=== PATIENT | female | born 1975 | race Caucasian/White ===

== ENCOUNTER 2019-04-19 14:57 | Outpatient (CLI) | payer OTHER, SELFPAY ==
--- NOTE | ~2019-04-19 | XR_ITS ---
EXAMINATION: XR chest 2V DATE: 04/19/2019 15:19 INDICATION: Cough and wheezing. Fever. Shortness of breath. TECHNIQUE: Frontal and lateral views of the chest were obtained. COMPARISON: Chest 2 views 12/27/2008 FINDINGS: The chest demonstrates clear lungs without pneumonia, pleural effusion, or pneumothorax. Th e heart size is normal. IMPRESSION: 1. No acute cardiopulmonary disease. Reviewed, dictated and finalized at location A. ENT RECORDS COORDINATOR
[2019-04-19 15:07] LABS: Basophils Absolute Auto 0.02 K/mm3 (0.00-0.10); Basophils Percent Auto 0.3 % (0.0-1.0); Eosinophils Absolute Auto 0.33 K/mm3 (0.02-0.50); Eosinophils Percent Auto 4.6 % (1.0-6.0); Hematocrit 45.1 % (35.0-49.0); Hemoglobin 15.4 g/dL (12.0-15.0); Immature Granulocyte Absolute 0.02 K/mm3 (0.00-0.00); Immature Granulocyte Percent A 0.3 % (0.0-0.0); Lymphocytes Absolute Auto 2.34 K/mm3 (1.10-4.50); Lymphocytes Percent Auto 32.4 % (18.0-42.0); Mean Corpuscular HGB Conc 34.1 g/dL (32.0-36.0); Mean Corpuscular Hemoglobin 32.4 pg (27.0-31.0); Mean Corpuscular Volume 94.9 fL (78.0-102.0); Mean Platelet Volume 9.2 fl (9.2-11.8); Monocytes Absolute Auto 0.59 K/mm3 (0.10-0.90); Monocytes Percent Auto 8.2 % (2.0-11.0); Neutrophils Absolute Auto 3.9 K/mm3 (1.7-7.2); Neutrophils Percent Auto 54.2 % (50.0-70.0); Platelet Count Result 332 K/mm3 (150-420); Red Blood Count 4.75 M/mm3 (4.20-5.40); Red Cell Distribution Width 13.6 % (11.6-14.4); White Blood Count 7.2 K/mm3 (4.8-10.8)
[2019-04-19 15:22] LABS: Alanine Aminotransferase 21 U/L (14-59); Albumin Level 3.7 g/dL (3.4-5.0); Alkaline Phosphatase 90 U/L (46-116); Aspartate Amino Transferase 17 U/L (15-37); Bilirubin,Total 0.2 mg/dL (0.00-1.00); Blood Urea Nitrogen 14 mg/dL (7-18); Calcium 8.6 mg/dL (8.5-10.1); Carbon Dioxide 30 mmol/L (21-32); Chloride 105 mmol/L (98-108); Estimated Glomerular Filt Rate > 60; Glucose 98 mg/dL (70-99); Osmolality Calculated 292 mOsm/kg (285-295); Sodium 141 mmol/L (136-145); Total Protein 7.3 g/dL (6.4-8.2)
[2019-04-19 15:39] LABS: Influenza Control Valid (Valid)
== END 2019-04-19 14:58 | disposition home or self-care (01) ==
LOC: CHSLAB 14:59
PROVIDERS: PCP Internal Medicine; Visit Provider Internal Medicine
DX: R05 Cough (principal); R06.2 Wheezing; R50.9 Fever, unspecified
CPT/HCPCS: 36415; 71046; 80053; 85025; 87081; 87804; 87880

== ENCOUNTER 2021-03-11 14:23 | Outpatient (CLI) | payer OTHER, SELFPAY ==
--- NOTE | ~2021-03-11 | XR_ITS ---
EXAMINATION: XR chest 2V 03/11/2021 15:17 INDICATION: Chest injury. Covid exposure. PROCEDURE: PA and lateral views of the chest COMPARISON: 04/19/2019 FINDINGS: The lungs are clear. The cardiomediastinal silhouette is within normal limits. There are no pleural effusions. There is no pneumothorax suspected. IMPRESSION: 1: NO ACUTE CARDIOPULMONARY DISEASE. Reviewed, dictated and finalized at location B. [employer] SPANISH TEACHER
[2021-03-11 15:26] LABS: Basophils Absolute Auto 0.03 K/mm3 (0.00-0.10); Basophils Percent Auto 0.4 % (0.0-1.0); Eosinophils Absolute Auto 0.32 K/mm3 (0.02-0.50); Eosinophils Percent Auto 4.6 % (1.0-6.0); Hematocrit 49.2 % (35.0-49.0); Hemoglobin 16.3 g/dL (12.0-15.0); Immature Granulocyte Absolute 0.02 K/mm3 (0.00-0.00); Immature Granulocyte Percent A 0.3 % (0.0-0.0); Lymphocytes Absolute Auto 1.73 K/mm3 (1.10-4.50); Lymphocytes Percent Auto 24.7 % (18.0-42.0); Mean Corpuscular HGB Conc 33.1 g/dL (32.0-36.0); Mean Corpuscular Hemoglobin 32.7 pg (27.0-31.0); Mean Corpuscular Volume 98.6 fL (78.0-102.0); Mean Platelet Volume 9.3 fl (9.2-11.8); Monocytes Absolute Auto 0.47 K/mm3 (0.10-0.90); Monocytes Percent Auto 6.7 % (2.0-11.0); Neutrophils Absolute Auto 4.4 K/mm3 (1.7-7.2); Neutrophils Percent Auto 63.3 % (50.0-70.0); Platelet Count Result 443 K/mm3 (150-420); Red Blood Count 4.99 M/mm3 (4.20-5.40); Red Cell Distribution Width 13.2 % (11.6-14.4)
[2021-03-11 15:38] LABS: Influenza Control Valid (Valid)
[2021-03-11 15:41] LABS: Alanine Aminotransferase 29 U/L (14-59); Albumin Level 3.5 g/dL (3.4-5.0); Alkaline Phosphatase 92 U/L (46-116); Anion Gap 9 mmol/L (8-16); Aspartate Amino Transferase 17 U/L (15-37); Bilirubin,Total 0.3 mg/dL (0.00-1.00); Blood Urea Nitrogen 12 mg/dL (7-18); Calcium 8.5 mg/dL (8.5-10.1); Carbon Dioxide 28 mmol/L (21-32); Chloride 103 mmol/L (98-108); Estimated Glomerular Filt Rate > 60; Glucose 80 mg/dL (70-99); Osmolality Calculated 288 mOsm/kg (285-295); Potassium 3.9 mmol/L (3.5-5.1); Sodium 140 mmol/L (136-145); Total Protein 7.3 g/dL (6.4-8.2)
[2021-03-11 15:46] LABS: SARS-CoV-2 Ag Positive (Negative)
== END 2021-03-11 14:24 | disposition home or self-care (01) ==
LOC: CHSLAB 14:27
PROVIDERS: PCP Internal Medicine; Visit Provider Internal Medicine
DX: S29.9XXA Unspecified injury of thorax, initial encounter (principal); U07.1 COVID-19; R06.00 Dyspnea, unspecified
CPT/HCPCS: 71046; 80053; 85025; 85380; 87426; 87804; C9803

== ENCOUNTER 2021-03-11 20:00 | Emergency (ER) | payer OTHER, SELFPAY ==
--- NOTE | 2021-03-11 21:16 | ED.SOB ---
HPI - SOB/Dyspnea General Chief Complaint: Shortness of Breath/Dyspnea Stated Complaint: physicain referral covid positive Time Seen by Provider: 03/11/21 21:16 Source: patient Mode of arrival: ambulatory Limitations: no limitations History of Present Illness HPI Narrative: 45-year-old woman comes in today complaining of left-sided upper chest pain that is worse with a deep breath and with movement. She states that she fell while carrying some firewood several days ago and the pain is getting worse. She states that she has had some shortness of breath as well. She has a cough, nasal congestion, and some body aches but denies fever, nausea, vomiting, diarrhea, sore throat, hemoptysis, syncope. MD elicited complaint: shortness of breath, cough, pain with inspiration and chest pain Onset (ago): day(s) (4) Timing: constant Severity: severe Exacerbating factors: movement, coughing and inspiration Relieving factors: rest Associated symptoms: chest pain and pain with inspiration Treatment prior to arrival: other (Gabapentin) Related Data Home oxygen amount: none Home Medications Medication Instructions Recorded Confirmed gabapentin 500 mg PO DAILY 03/11/21 03/11/21 Allergies Allergy/AdvReac Type Severity Reaction Status Date / Time No Known Allergies Allergy Verified 03/11/21 21:14 Review of Systems Constitutional: Constitutional: Denies chills, Reports fatigue, Denies fever(s) and Denies weakness ENT: Reports nasal congestion and Denies sore throat Cardiovascular: Cardiovascular: Reports chest pain and Denies radiating jaw, neck or arm pain Respiratory: Respiratory: Reports cough, Reports dyspnea and Denies wheezing Gastrointestinal: Gastrointestinal: Denies diarrhea, Denies nausea and Denies vomiting Genitourinary: Genitourinary: Denies nocturia and Denies dysuria Musculoskeletal: Musculoskeletal: Denies back pain, Denies arthralgias and Denies joint swelling Integumentary/Breasts: Skin/Breast: Denies pruritus, Denies erythema and Denies rash Neurologic: Denies vertigo, Denies dizziness and Denies syncope Allergic/Immunologic: Allergic/Immunologic: Denies lip swelling and Denies throat swelling [facility] Social History Social History (Updated 03/11/21 @ 21:26 by Bennett Whitlock MD) Smoking status: Current every day smoker Alcohol intake: current Substance use type: marijuana Living arrangements: with family Exam Const: General: healthy appearing and alert Orientation/consciousness: patient oriented x3 Limitations: no limitations Other: Mild acute distress HENMT: Mouth: Yes moist mucous membranes Throat: posterior oropharynx normal Eyes: Conjunctivae: conjunctivae normal Pupils: Equal, round and reactive pupils present EOM: EOMs intact bilaterally Chest: Chest palpation & inspection: tenderness (Left upper anterior) Resp: Effort & Inspection: normal respiratory effort and not labored Auscultation: clear to auscultation bilaterally, no rales, no rhonchi and no wheezes Cardio: Rate: regular rate Rhythm: regular rhythm Heart sounds: no murmurs Skin: General skin exam: normal color, no jaundice and no pallor Rashes: no rashes Neuro: General: patient oriented x3, moves all extremities, no focal motor deficits and CN's II-XI intact bilaterally Speech: normal speech Gait exam (Neuro): Normal gait present Extrem: General: normal to inspection and no clubbing, cyanosis or edema Psych: Mental Status: mental status grossly normal Affect: normal affect Attitude: cooperative Thought content: Yes Normal thought content present Course Course Emergency Course: Earlier today the patient hadc a chest x-ray which was read as normal. She also had a negative D-dimer, normal white count, normal electrolytes and normal LFTs. Covid test was positive.. Discharge Plan Discharge Clinical Impression: Acute chest wall pain, COVID-19 Patient Disposition: Home, Self-Care Condition: Stable In
[2021-03-11 21:18] VITALS: BP 106/63; PULSE 88; RESP 18; TEMP 36.2; O2SAT 95
--- NOTE | 2021-03-11 21:29 | PC.NURSE ---
pt states, I am a heavy smoker and drinker and i smoke marijuana pretty much every day. pt states, I smoke about 1.5 packs per day and drink a box of wine every three days.
[2021-03-11] MEDS: HYDROcodone/acetaminophen (*CRX) 5-325 MG TABLET 1 TAB PO (21:38)
[2021-03-11 21:59] VITALS: BP 116/82; PULSE 86; RESP 18; O2SAT 94
--- NOTE | 2021-03-16 20:47 | PC.NURSE ---
late note: medication response/reassessment for norco, pain decreased to 3 out of 10 at time of discharge.
--- NOTE | 2021-03-16 20:50 | PC.NURSE ---
late enter: pt informed this staff member of a past tubal ligation surgery and that she is does not know when her last menstrual period was.
== END 2021-03-11 22:01 | disposition home or self-care (01) ==
PROVIDERS: Emergency Provider Emergency Medicine; PCP Internal Medicine
DX: R07.89 Other chest pain (principal); U07.1 COVID-19
CPT/HCPCS: 99283; A9270

== ENCOUNTER 2021-04-03 14:16 | Outpatient (CLI) | payer OTHER, SELFPAY ==
--- NOTE | ~2021-04-03 | XR_ITS ---
EXAMINATION: XR chest 2V DATE: 04/03/2021 14:41 INDICATION: Cough and COPD TECHNIQUE: PA and lateral views of the chest are obtained. COMPARISON: 03/11/2021 FINDINGS: The lungs are free of acute opacities. There is no pleural effusion or pneumothorax. The ca rdiomediastinal silhouette is normal. There is mild thoracic spondylosis. IMPRESSION: 1. No acute cardiopulmonary abnormality. Reviewed, dictated and finalized at location A. DATION MANAGER
[2021-04-03 14:31] LABS: Appearance Urine Clear (Clear); Bilirubin Urine Negative (Negative); Color Urine Light Yellow (Yellow); Glucose Urine UA Negative (Negative); Ketones Urine Negative (Negative); Leukocyte Esterase Ur Negative (Negative); Nitrate Urine Negative (Negative); Protein Urine Trace (Negative); Urobilinogen Urine 0.2 mg/dL (0.2-1.0)
[2021-04-03 14:32] LABS: Basophils Absolute Auto 0.02 K/mm3 (0.00-0.10); Basophils Percent Auto 0.2 % (0.0-1.0); Eosinophils Absolute Auto 0.01 K/mm3 (0.02-0.50); Eosinophils Percent Auto 0.1 % (1.0-6.0); Hemoglobin 16.7 g/dL (12.0-15.0); Immature Granulocyte Absolute 0.04 K/mm3 (0.00-0.00); Immature Granulocyte Percent A 0.4 % (0.0-0.0); Immature Platelet Fraction Pct 3.9 % (1.0-7.0); Lymphocytes Absolute Auto 0.83 K/mm3 (1.10-4.50); Lymphocytes Percent Auto 7.6 % (18.0-42.0); Mean Corpuscular HGB Conc 34.1 g/dL (32.0-36.0); Mean Corpuscular Hemoglobin 33.1 pg (27.0-31.0); Mean Corpuscular Volume 97.2 fL (78.0-102.0); Mean Platelet Volume 9.3 fl (9.2-11.8); Monocytes Absolute Auto 0.15 K/mm3 (0.10-0.90); Monocytes Percent Auto 1.4 % (2.0-11.0); Neutrophils Absolute Auto 9.8 K/mm3 (1.7-7.2); Neutrophils Percent Auto 90.3 % (50.0-70.0); Platelet Count Result 548 K/mm3 (150-420); Red Blood Count 5.04 M/mm3 (4.20-5.40); Red Cell Distribution Width 13.7 % (11.6-14.4); White Blood Count 10.9 K/mm3 (4.8-10.8)
[2021-04-03 14:36] LABS: Add Urine Microscopic? YES; Blood Urine Trace-Intact (Negative)
[2021-04-03 14:38] LABS: Bacteria Urine Trace /hpf; RBC Urine None seen /hpf (0-2); Squamous Epithelial Cell Urine Few /hpf (Few); WBC Urine None seen /hpf (0-3)
[2021-04-03 14:57] LABS: Alanine Aminotransferase 33 U/L (14-59); Albumin Level 3.6 g/dL (3.4-5.0); Alkaline Phosphatase 96 U/L (46-116); Anion Gap 11 mmol/L (8-16); Aspartate Amino Transferase 16 U/L (15-37); Bilirubin,Total 0.3 mg/dL (0.00-1.00); Blood Urea Nitrogen 12 mg/dL (7-18); Carbon Dioxide 27 mmol/L (21-32); Chloride 100 mmol/L (98-108); Estimated Glomerular Filt Rate > 60; Glucose 112 mg/dL (70-99); Osmolality Calculated 286 mOsm/kg (285-295); Potassium 4.6 mmol/L (3.5-5.1); Sodium 138 mmol/L (136-145); Total Protein 7.1 g/dL (6.4-8.2)
== END 2021-04-03 14:17 | disposition home or self-care (01) ==
LOC: CHSLAB 14:18
PROVIDERS: PCP Internal Medicine; Visit Provider Internal Medicine
DX: R05.9 Cough, unspecified (principal); R30.0 Dysuria; J44.1 Chronic obstructive pulmonary disease with (acute) exacerbation
CPT/HCPCS: 36415; 71046; 80053; 81001; 85025; 85055

== ENCOUNTER 2022-06-04 10:56 | Emergency (ER) | payer OTHER, SELFPAY ==
--- NOTE | ~2022-06-04 | XR_ITS ---
XR foot LT min 3V 06/04/2022 11:29 Indication: Left foot pain. Infection of the fourth and fifth toes. Procedure: 4 views left foot Comparison: 08/08/2018 Findings: There is anatomic alignment. No findings to suggest osteomyelitis. No fracture or traumatic malalignment. No foreign bodies. Small degenerative calcaneal enthesophytes. Impression: 1: No significant bone or joint abnormality. If there is continued clinical concern for osteomyelitis , further evaluation with MRI with contrast recommended. Reviewed, dictated and finalized at location A. Impression: 1: No significant bone or joint abnormality. If there is continued clinical con cern for osteomyelitis, further evaluation with MRI with contrast recommended.
[2022-06-04 10:56] VITALS: BP 139/91; PULSE 106; RESP 17; TEMP 36.4; O2SAT 96
[2022-06-04 11:08] VITALS: BP 139/91; PULSE 106; RESP 17; TEMP 36.4; O2SAT 96
--- NOTE | 2022-06-04 11:17 | ED.GENADULT ---
HPI - General Adult General Chief complaint: Wound/Laceration Stated complaint: left fifth toe pain and discoloration Time Seen by Provider: 06/04/22 11:09 History of Present Illness HPI narrative: the patient is a 46-year-old woman with no significant past medical history. For the last month, the patient is noted redness and tenderness at the tip of the left 5th toe. This was spontaneous. No history of trauma to left foot. She has applied topical antibiotic ointment to this. Now, there is some redness of the tip of the left 4th toe for the last 3 days. No fevers. No history of diabetes or peripheral neuropathy. Has sensation in the feet. Does smoke cigarettes.No previous similar history. No history of boils or abscesses elsewhere. Also complains of dysuria, urinary urgency and frequency with occasional hematuria for the last several days. No abdominal pain or back pain. History of kidney stones in the distant past. Varicose veins. Related Data Allergies Allergy/AdvReac Type Severity Reaction Status Date / Time No Known Allergies Allergy Verified 06/04/22 11:06 Review of Systems Review of Systems: All systems reviewed & are unremarkable except as noted in HPI and below Constitutional: Constitutional: Reports as per HPI, Reports no additional constitutional complaints, Denies chills, Denies excessive sweating, Denies fatigue, Denies fever(s), Denies headache(s) and Denies weakness Eyes: Eyes: Reports as per HPI, Reports no additional eye complaints, Denies change in vision and Denies photophobia ENT: Reports system reviewed and no additional complaints, except as documented, Reports as per HPI, Denies dysphagia, Denies vertigo, Denies dizziness, Denies headache(s), Denies lip swelling, Denies nasal congestion, Denies sore throat, Denies throat swelling and Denies tongue swelling Cardiovascular: Cardiovascular: Reports as per HPI, Reports no additional cardiovascular complaints, Denies chest pain, Denies syncope, Denies rapid heart rate and Denies dyspnea Respiratory: Respiratory: Reports as per HPI, Reports no additional respiratory complaints, Denies chest congestion, Denies cough, Denies dyspnea and Denies wheezing Gastrointestinal: Gastrointestinal: Reports as per HPI, Reports no additional gastrointestinal complaints, Denies abdominal pain, Denies constipation, Denies dysphagia, Denies diarrhea, Denies nausea and Denies vomiting Genitourinary: Genitourinary: Reports as per HPI, Reports hematuria, Denies urinary frequency, Reports nocturia, Reports dysuria, Denies urinary incontinence and Reports urinary urgency Musculoskeletal: Musculoskeletal: Reports no additional musculoskeletal complaints, Denies back pain, Denies myalgias, Reports arthralgias ( left 4th & 5th toes), Reports joint swelling ( left 5th toe) and Denies numbness Integumentary/Breasts: Skin/Breast: Reports system reviewed and no additional complaints, except as docu, Denies pruritus, Reports erythema ( Left 4th 5th toes), Denies rash and Reports skin ulcer ( left 5th toe) Neurologic: Reports system reviewed and no additional complaints, except as documented, Reports as per HPI, Denies confusion, Denies vertigo, Denies dizziness, Denies syncope, Denies headache(s), Denies focal weakness, Denies numbness and Denies weakness Psychiatric: Psychiatric: Reports as per HPI, Denies anxiety, Denies confusion, Denies depression, Denies homicidal ideation and Denies suicidal ideation Endocrine: Endocrine: Reports no additional endocrine complaints, Denies excessive sweating, Denies fatigue, Denies polydipsia and Denies polyuria Hematologic/Lymphatic: Hematologic/Lymphatic: Reports no additional hematologic/lymphatic complaints, Denies easy bleeding and Denies easy bruising Allergic/Immunologic: Allergic/Immunologic: Reports no additional allergic/immunologic complaints, Denies lip swelling, Denies throat swelling, Denies tongue swelling and Denies wheezing PMFSH So
[2022-06-04 11:34] LABS: Basophils Absolute Auto 0.04 K/mm3 (0.00-0.10); Basophils Percent Auto 0.5 % (0.0-1.0); Eosinophils Absolute Auto 0.24 K/mm3 (0.02-0.50); Hematocrit 51.9 % (35.0-49.0); Hemoglobin 17.3 g/dL (12.0-15.0); Immature Granulocyte Absolute 0.05 K/mm3 (0.00-0.00); Immature Granulocyte Percent A 0.6 % (0.0-0.0); Lymphocytes Percent Auto 20.2 % (18.0-42.0); Mean Corpuscular HGB Conc 33.3 g/dL (32.0-36.0); Mean Corpuscular Volume 96.1 fL (78.0-102.0); Mean Platelet Volume 9.7 fl (9.2-11.8); Monocytes Percent Auto 7.6 % (2.0-11.0); Neutrophils Absolute Auto 5.4 K/mm3 (1.7-7.2); Neutrophils Percent Auto 68.1 % (50.0-70.0); Platelet Count Result 474 K/mm3 (150-420); Red Cell Distribution Width 14.4 % (11.6-14.4); White Blood Count 7.9 K/mm3 (4.8-10.8)
[2022-06-04] MEDS: ceFAZolin 2 GM/NS 50 ML 2 GM/50 ML BAG IVPB (11:42)
[2022-06-04] MEDS: SODIUM CHLORIDE 0.9% IV 1,000 ML 999 ML IV CONT (11:43)
[2022-06-04] MEDS: ACETAMINOPHEN 500 MG TABLET 1000 MG PO (11:44)
[2022-06-04 11:51] LABS: Alanine Aminotransferase 33 U/L (14-59); Albumin Level 3.6 g/dL (3.4-5.0); Alkaline Phosphatase 106 U/L (46-116); Anion Gap 9 mmol/L (8-16); Aspartate Amino Transferase 26 U/L (15-37); Bilirubin,Total 0.3 mg/dL (0.00-1.00); Blood Urea Nitrogen 8 mg/dL (7-18); CRP < 0.5 mg/dL (0.0-0.9); Carbon Dioxide 30 mmol/L (21-32); Chloride 102 mmol/L (98-108); Estimated CRCL calculation 108 ml/min; Estimated Glomerular Filt Rate > 60; Glucose 93 mg/dL (70-99); Osmolality Calculated 290 mOsm/kg (285-295); Sodium 141 mmol/L (136-145); Total Protein 7.6 g/dL (6.4-8.2)
[2022-06-04 12:10] VITALS: BP 116/78; PULSE 81; RESP 17; O2SAT 95
[2022-06-04 12:17] LABS: Appearance Urine Clear (Clear); Bilirubin Urine Negative (Negative); Blood Urine Negative (Negative); Color Urine Light Yellow (Yellow); Glucose Urine UA Negative (Negative); Ketones Urine Negative (Negative); Leukocyte Esterase Ur Negative LEU/UL (Negative); Nitrate Urine Negative (Negative); Protein Urine 1+ (Negative); Urobilinogen Urine 0.2 mg/dL (0.2-1.0)
[2022-06-04 12:19] LABS: Pregnancy On Board Control Positive; Urine Pregnancy Test Negative
[2022-06-04 12:22] LABS: Add Urine Microscopic? YES; Bacteria Urine None seen /hpf; RBC Urine 0-2 /hpf (0-2); Squamous Epithelial Cell Urine Few /hpf (Few); WBC Urine 0-3 /hpf (0-3)
[2022-06-04] MEDS: IBUPROFEN 400 MG TABLET 800 MG PO (12:48)
[2022-06-04 12:55] VITALS: BP 137/95; PULSE 80; RESP 17; TEMP 36.8; O2SAT 95
[2022-06-04 13:11] LABS: Erythrocyte Sedimentation Rate 8 mm/hr (0-15)
== END 2022-06-04 12:55 | disposition home or self-care (01) ==
PROVIDERS: Emergency Provider Emergency Medicine; PCP Internal Medicine
DX: L03.032 Cellulitis of left toe (principal); F17.200 Nicotine dependence, unspecified, uncomplicated
CPT/HCPCS: 36415; 73630; 80053; 81001; 81025; 83605; 85025; 85652; 86140; 96361; 96365; 99284; A9270; J0690; J7030

== ENCOUNTER 2022-10-16 11:38 | Emergency (ER) | payer OTHER, SELFPAY ==
[2022-10-16 11:40] VITALS: BP 148/99; PULSE 109; RESP 20; TEMP 36.8; O2SAT 96
--- NOTE | 2022-10-16 11:40 | ED.ABDPAIN ---
HPI - Abdominal Pain General Chief Complaint: Nausea/Vomiting/Diarrhea Stated Complaint: abdominal pain Time Seen by Provider: 10/16/22 11:40 Source: patient Mode of arrival: ambulatory Limitations: no limitations History of Present Illness HPI narrative: 47-year-old female, smoker, marijuana user presents to the ER with a one-week history of -- diffuse abdominal spasms/pain -- diarrhea- multiple episodes no recent antibiotics. MD elicited complaint: abdominal pain Pertinent past history: gastritis Onset (ago): day(s) ( started 7 days ago) Pain Consistency: constant Location: diffuse Severity: moderate Quality: aching Radiation: none Migration to: no migration Exacerbating factors: nothing Relieving factors: nothing Associated symptoms: denies other symptoms Treatments prior to arrival: NSAIDs Related Data Home Medications Medication Instructions Recorded Confirmed pantoprazole 40 mg tablet,delayed 40 mg PO QAM 10/16/22 10/16/22 release (Protonix) Allergies Allergy/AdvReac Type Severity Reaction Status Date / Time No Known Allergies Allergy Verified 10/16/22 12:02 Review of Systems Review of Systems: All systems reviewed & are unremarkable except as noted in HPI and below Constitutional: Constitutional: Reports as per HPI and Reports no additional constitutional complaints Eyes: Eyes: Reports as per HPI and Reports no additional eye complaints ENT: Reports system reviewed and no additional complaints, except as documented and Reports as per HPI Cardiovascular: Cardiovascular: Reports as per HPI and Reports no additional cardiovascular complaints Respiratory: Respiratory: Reports as per HPI and Reports no additional respiratory complaints Gastrointestinal: Gastrointestinal: Reports as per HPI, Reports no additional gastrointestinal complaints, Reports abdominal pain and Reports diarrhea Genitourinary: Genitourinary: Reports no additional female genitourinary complaints and Reports as per HPI Musculoskeletal: Musculoskeletal: Reports no additional musculoskeletal complaints and Reports as per HPI Integumentary/Breasts: Skin/Breast: Reports system reviewed and no additional complaints, except as docu and Reports as per HPI Comments: left foot 1st and 2nd toes are cyanotic Neurologic: Reports system reviewed and no additional complaints, except as documented and Reports as per HPI Psychiatric: Psychiatric: Reports no additional psychiatric complaints and Reports as per HPI Endocrine: Endocrine: Reports no additional endocrine complaints and Reports as per HPI Hematologic/Lymphatic: Hematologic/Lymphatic: Reports no additional hematologic/lymphatic complaints and Reports as per HPI Allergic/Immunologic: Allergic/Immunologic: Reports no additional allergic/immunologic complaints and Reports as per HPI [facility] Social History Social History Smoking status: Current every day smoker Alcohol intake: current Substance use type: marijuana Living arrangements: with family Exam Const: General: no acute distress Nutritional Appearance: obese Orientation/consciousness: patient oriented x3 Limitations: no limitations HENMT: Head: normal to inspection Ears: external ears normal Face/Nose/Sinus: Normal external nose present Face and sinus: normal facial exam Mouth: Yes Normal oral and palatal mucosa present Throat: posterior oropharynx normal Eyes: Conjunctivae: conjunctivae normal Pupils: Equal, round and reactive pupils present EOM: EOMs intact bilaterally Direct Ophthalmoscopy: no photophobia Neck: Neck: normal visual inspection, no lymphadenopathy and no meningeal signs Chest: Chest palpation & inspection: normal inspection of the chest Resp: Effort & Inspection: normal respiratory effort Auscultation: clear to auscultation bilaterally Cardio: Rate: regular rate Rhythm: regular rhythm GI: GI Palp: Yes Soft to palpa
[2022-10-16 12:08] LABS: Appearance Urine Slightly Cloudy (Clear); Bilirubin Urine 1+ (Negative); Blood Urine Trace-Intact (Negative); Color Urine Yellow (Yellow); Glucose Urine UA Negative (Negative); Ketones Urine Trace (Negative); Leukocyte Esterase Ur 1+ LEU/UL (Negative); Nitrate Urine Positive (Negative); Protein Urine 2+ (Negative); Specific Grav Ur >= 1.030 (1.010-1.020)
[2022-10-16 12:21] LABS: Eosinophils Absolute Auto 0.46 K/mm3 (0.02-0.50); Eosinophils Percent Auto 4.4 % (1.0-6.0); Hematocrit 62.6 % (35.0-49.0); Hemoglobin 20.8 g/dL (12.0-15.0); Immature Granulocyte Absolute 0.05 K/mm3 (0.00-0.00); Immature Granulocyte Percent A 0.5 % (0.0-0.0); Immature Platelet Fraction Pct 5.3 % (1.0-7.0); Lymphocytes Absolute Auto 1.19 K/mm3 (1.10-4.50); Lymphocytes Percent Auto 11.5 % (18.0-42.0); Mean Corpuscular HGB Conc 33.2 g/dL (32.0-36.0); Mean Corpuscular Hemoglobin 30.2 pg (27.0-31.0); Mean Platelet Volume 9.9 fl (9.2-11.8); Monocytes Absolute Auto 0.75 K/mm3 (0.10-0.90); Monocytes Percent Auto 7.3 % (2.0-11.0); Neutrophils Absolute Auto 7.8 K/mm3 (1.7-7.2); Neutrophils Percent Auto 75.3 % (50.0-70.0); Platelet Count Result 551 K/mm3 (150-420); Red Blood Count 6.88 M/mm3 (4.20-5.40); Red Cell Distribution Width 15.2 % (11.6-14.4); White Blood Count 10.3 K/mm3 (4.8-10.8)
[2022-10-16 12:23] LABS: Add Urine Microscopic? YES; RBC Urine None seen /hpf (0-2)
[2022-10-16 12:24] LABS: Bacteria Urine 1+ /hpf; Mucus Urine Moderate /lpf; Squamous Epithelial Cell Urine Moderate /hpf (Few)
[2022-10-16 12:32] LABS: INR 1.1; Prothrombin Time 11.9 Seconds (9.50-12.10)
[2022-10-16 12:36] LABS: Lactic Acid Reflex 0.8 mmol/L (0.4-2.0)
[2022-10-16 12:38] LABS: Alanine Aminotransferase 35 U/L (14-59); Albumin Level 3.6 g/dL (3.4-5.0); Alkaline Phosphatase 103 U/L (46-116); Anion Gap 5 mmol/L (8-16); Aspartate Amino Transferase 22 U/L (15-37); Bilirubin,Total 0.5 mg/dL (0.00-1.00); Blood Urea Nitrogen 9 mg/dL (7-18); Calcium 9.1 mg/dL (8.5-10.1); Carbon Dioxide 32 mmol/L (21-32); Chloride 101 mmol/L (98-108); Estimated CRCL calculation 78 ml/min; Estimated Glomerular Filt Rate > 60; Glucose 113 mg/dL (70-99); Osmolality Calculated 285 mOsm/kg (285-295); Potassium 3.8 mmol/L (3.5-5.1); Sodium 138 mmol/L (136-145); Total Protein 7.3 g/dL (6.4-8.2)
[2022-10-16 12:39] LABS: Lipase 17 U/L (16-77); Troponin I < 4.0 ng/L (0.00-60.4)
[2022-10-16] MEDS: LACTATED RINGERS 1,000 ML 999 ML IV CONT (13:11)
[2022-10-16 13:57] VITALS: BP 147/92; PULSE 88; RESP 20; TEMP 36.7; O2SAT 97
--- NOTE | 2022-10-19 12:45 | PC.NURSE ---
PRELIMINARY URINE CULTURE RESULTS: ISOLATE 1: GREATER THAN 100,000 CFU/ML OF ESCHERICHIA COLI. TO AWAIT C&S PER DR WALTER.
--- NOTE | 2022-10-21 13:12 | PC.NURSE ---
FINAL URINE CULTURE RESULT: ISOLATE 1: GREATER THAN 100,000 CGU/ML OF ESCHERICHIA COLI. PER C&S AND DR ZIMMER NO CHANGE IN TREATMENT NEEDED.
== END 2022-10-16 13:58 | disposition home or self-care (01) ==
PROVIDERS: Emergency Provider Internal Medicine Critical Care Medicine; PCP Internal Medicine
DX: E86.0 Dehydration (principal); L03.032 Cellulitis of left toe; R10.84 Generalized abdominal pain; R19.7 Diarrhea, unspecified; F17.200 Nicotine dependence, unspecified, uncomplicated
CPT/HCPCS: 36415; 80053; 81001; 83605; 83690; 84484; 85025; 85055; 85610; 87077; 87086; 87088; 87186; 96360; 99284; J7120

== ENCOUNTER 2022-10-28 14:03 | Outpatient (CLI) | payer OTHER, SELFPAY ==
--- NOTE | ~2022-10-28 | XR_ITS ---
EXAMINATION: XR foot LT min 3V DATE: 10/28/2022 14:28 INDICATION: Left foot pain and swelling TECHNIQUE: Dorsoplantar, lateral, and 2 oblique views of the left foot were obtained. COMPARISON: 06/04/2022 FINDINGS: Bone alignment is normal. There is no fracture. There is mild osteoarthritis at the first t arsometatarsal joint, the first metatarsophalangeal joint, and in multiple interphalangeal joints. Po sterior and plantar calcaneal enthesophytes are noted. IMPRESSION: 1. No acute osseous abnormality. Reviewed, dictated and finalized at location F.
[2022-10-28 14:23] LABS: Basophils Absolute Auto 0.06 K/mm3 (0.00-0.10); Basophils Percent Auto 0.6 % (0.0-1.0); Eosinophils Absolute Auto 0.45 K/mm3 (0.02-0.50); Eosinophils Percent Auto 4.7 % (1.0-6.0); Hematocrit 59.8 % (35.0-49.0); Hemoglobin 19.7 g/dL (12.0-15.0); Immature Granulocyte Absolute 0.04 K/mm3 (0.00-0.00); Immature Granulocyte Percent A 0.4 % (0.0-0.0); Lymphocytes Absolute Auto 1.73 K/mm3 (1.10-4.50); Lymphocytes Percent Auto 17.9 % (18.0-42.0); Mean Corpuscular HGB Conc 32.9 g/dL (32.0-36.0); Mean Corpuscular Hemoglobin 29.8 pg (27.0-31.0); Mean Corpuscular Volume 90.5 fL (78.0-102.0); Mean Platelet Volume 9.7 fl (9.2-11.8); Monocytes Absolute Auto 0.63 K/mm3 (0.10-0.90); Monocytes Percent Auto 6.5 % (2.0-11.0); Neutrophils Absolute Auto 6.7 K/mm3 (1.7-7.2); Neutrophils Percent Auto 69.9 % (50.0-70.0); Platelet Count Result 627 K/mm3 (150-420); Red Blood Count 6.61 M/mm3 (4.20-5.40); Red Cell Distribution Width 15.1 % (11.6-14.4); White Blood Count 9.7 K/mm3 (4.8-10.8)
[2022-10-28 14:37] LABS: D Dimer 0.43 mg/L (0.19-0.50); Partial Thromboplastin Time 33.3 SEC (23.90-30.70); Prothrombin Time 10.8 Seconds (9.50-12.10)
[2022-10-28 14:57] LABS: Alanine Aminotransferase 65 U/L (14-59); Albumin Level 3.8 g/dL (3.4-5.0); Alkaline Phosphatase 110 U/L (46-116); Anion Gap 6 mmol/L (8-16); Aspartate Amino Transferase 39 U/L (15-37); Bilirubin,Total 0.4 mg/dL (0.00-1.00); Blood Urea Nitrogen 8 mg/dL (7-18); Calcium 9.3 mg/dL (8.5-10.1); Carbon Dioxide 31 mmol/L (21-32); Chloride 101 mmol/L (98-108); Cholesterol 188 mg/dL (0-200); Estimated Glomerular Filt Rate > 60; Glucose 99 mg/dL (70-99); HDL Direct 47 mg/dL (40-60); LDL Cholesterol Calculated 95 mg/dL (<130); Osmolality Calculated 284 mOsm/kg (285-295); Potassium 4.6 mmol/L (3.5-5.1); Sodium 138 mmol/L (136-145); Total Protein 7.2 g/dL (6.4-8.2); Triglycerides 228 mg/dL (0-150); Uric Acid 6.2 mg/dL (2.6-6.0)
[2022-11-05 11:34] LABS: Block/Specimen ID Not Given; Exon 14; Gene JAK2; JAK2 V617F Mutation Detected (Not Detected); Mutation Type missense
== END 2022-10-28 14:04 | disposition home or self-care (01) ==
PROVIDERS: PCP Internal Medicine; Visit Provider Nurse Practitioner Family
DX: R22.42 Localized swelling, mass and lump, left lower limb (principal); I10 Essential (primary) hypertension; D45 Polycythemia vera
CPT/HCPCS: 36415; 73630; 80053; 80061; 81270; 84550; 85025; 85055; 85380; 85610; 85730

== ENCOUNTER 2022-11-02 12:24 | Outpatient (CLI) | payer OTHER, SELFPAY ==
--- NOTE | ~2022-11-02 | US_ITS ---
EXAMINATION: US art doppler w press LE BI DATE: 11/02/2022 13:27 INDICATION: Peripheral arterial occlusive disease with left lower limb pain TECHNIQUE: Segmental pressures and plethysmographic and Doppler waveforms of the brachial and lower e xtremity arteries were obtained. COMPARISON: None. FINDINGS: Right and left brachial artery pressures of 139 mm Hg and 134 mm Hg, respectively, are concordant (no rmal difference <= 30 mmHg). The right ankle-brachial index (JANET) is 1.12 (normal >= 0.9-1). The right great toe-brachial index (T BI) is 0.32 (normal >= 0.6-0.8). Arterial waveforms are triphasic at the right popliteal and posterio r tibial arteries and biphasic at the right dorsalis pedis artery, each with brisk systolic upstrokes . Parvus et tardus waveforms with mildly delayed systolic upstrokes at the right great toe. The left JANET is 0.91. The left TBI is unable to be obtained due to inability to obtain a pressure at the left great toe. Arterial waveforms are biphasic at the left popliteal, posterior tibial and dorsa lis pedis arteries, each with brisk systolic upstrokes. Additional parvus and tardus waveforms at the left second, fourth and most prominently at the first toes. Phasic waveforms with normal systolic up strokes at the left third and fifth toes. IMPRESSION: 1. Arterial occlusive disease to bilateral lower limbs with normal right JANET but moderately decreased right TBI and borderline left JANET with a parvus et tardus arterial waveform but no measurable pressu re at the left great toe. Reviewed, dictated and finalized at location A. IMPRESSION: 1. Arterial occlusive disease to bilateral lower limbs with normal right JANET bu t moderately decreased right TBI and borderline left JANET with a parvus et tardu s arterial waveform but no measurable pressure at the left great toe.
--- NOTE | ~2022-11-02 | US_ITS ---
EXAMINATION: US venous doppler [facility] DATE: 11/02/2022 13:27 INDICATION: Left lower limb cyanosis and pain TECHNIQUE: Grayscale ultrasound images without and with compression and Doppler ultrasound images of the left lower extremity veins were obtained. COMPARISON: None. FINDINGS: The visualized portions of left common femoral vein, profunda (deep) femoral vein, femoral vein, popl iteal vein, peroneal veins, posterior tibial veins, gastrocnemius vein and greater saphenous vein out flow are patent. IMPRESSION: 1. No deep venous thrombosis in the left lower limb. Reviewed, dictated and finalized at location A.
[2022-11-02 12:50] LABS: Venous Carboxyhemoglobin 8.4 %THb (0-2.0)
[2022-11-02 13:34] LABS: Ferritin 46 ng/mL (8-252); Iron 150 ug/dL (50-170); Percent Iron Saturation 39 % (12-57)
[2022-11-02 13:47] LABS: Erythrocyte Sedimentation Rate 1 mm/hr (0-15)
[2022-11-06 15:27] LABS: Erythropoietin (EPO) 1.4 mIU/mL (2.6-18.5)
== END 2022-11-02 12:25 | disposition home or self-care (01) ==
LOC: CHSIMG 12:28
PROVIDERS: PCP Internal Medicine; Visit Provider Nurse Practitioner Family
DX: R23.0 Cyanosis (principal); I73.9 Peripheral vascular disease, unspecified; D45 Polycythemia vera
CPT/HCPCS: 36415; 82375; 82668; 82728; 83540; 83550; 85652; 93923; 93971

== ENCOUNTER 2022-11-03 07:28 | Outpatient (CLI) | payer OTHER, SELFPAY ==
--- NOTE | ~2022-11-03 | US_ITS ---
EXAMINATION: US abdomen complete DATE: 11/03/2022 07:58 INDICATION: Elevated liver enzymes TECHNIQUE: Multiple grayscale and Doppler ultrasound images of the abdomen were obtained. COMPARISON: CT, 02/16/2018 FINDINGS: The head and body of the pancreas are normal. The pancreatic tail is obscured by bowel gas. There is a 6.2 x 4.8 cm hypoechoic area posteriorly in the right hepatic lobe. The liver is otherwis e normal with normal echogenicity and echotexture. No surface nodularity. Normal hepatopetal flow in the main portal vein. The gallbladder is normal with no abnormal wall thickening, pericholecystic flu id or stones. The normal common bile duct measures 3 mm. There was no sonographic Dimas sign. The vi sualized portions of the aorta and inferior vena cava are normal. The spleen is normal in appearance and measures 11.1 cm. The right kidney measures 10.7 x 5.7 x 4.5 c m. The left kidney measures 12.4 x 5.2 x 5.8 cm. The kidneys demonstrate normal parenchymal echogenic ity. There is no hydronephrosis. IMPRESSION: 1. Hypoechoic area posteriorly in the right hepatic lobe which could reflect mass or possibly focal f atty sparing. Follow-up MRI without and with contrast is recommended. Reviewed, dictated and finalized at location B. IMPRESSION: 1. Hypoechoic area posteriorly in the right hepatic lobe which could reflect ma ss or possibly focal fatty sparing. Follow-up MRI without and with contrast is recommended.
== END 2022-11-03 07:29 | disposition home or self-care (01) ==
LOC: CHSIMG 07:30
PROVIDERS: PCP Internal Medicine; Visit Provider Nurse Practitioner Family
DX: R74.01 Elevation of levels of liver transaminase levels (principal); R10.9 Unspecified abdominal pain; R93.2 Abnormal findings on diagnostic imaging of liver and biliary tract
CPT/HCPCS: 76700

== ENCOUNTER 2023-08-11 11:28 | Outpatient (CLI) | payer OTHER, SELFPAY ==
--- NOTE | ~2023-08-11 | MM_ITS ---
EXAMINATION: MM screening zach BI w annabelle HISTORY: Screening mammogram TECHNIQUE: Craniocaudal and mediolateral oblique 3-D tomosynthesis images were obtained and synthetic 2-D images were generated. CAD analysis was submitted and interpreted. COMPARISON: 11/19/2013 BREAST PARENCHYMAL COMPOSITION:Not Dense. The breasts are almost entirely fatty FINDINGS: No suspicious mass, calcification, or architectural distortion are identified in either tanya ast to suggest malignancy. There has been no suspicious interval change. IMPRESSION: No mammographic evidence of malignancy. Recommend routine screening mammography in one year. BI-RADS Category 1: Negative Reviewed, dictated and finalized at location .
== END 2023-08-11 11:29 | disposition home or self-care (01) ==
LOC: CHSIMG 11:33
PROVIDERS: PCP Internal Medicine; Visit Provider Internal Medicine
DX: Z12.31 Encounter for screening mammogram for malignant neoplasm of breast (principal)
CPT/HCPCS: 77063; 77067

== ENCOUNTER 2023-09-20 14:18 | Outpatient (CLI) | payer OTHER, SELFPAY ==
--- NOTE | ~2023-09-20 | US_ITS ---
EXAMINATION: US venous doppler LE RT DATE: 09/20/2023 14:51 INDICATION: Right lower limb pain and swelling. TECHNIQUE: Grayscale ultrasound images without and with compression and Doppler ultrasound images of the right lower extremity veins were obtained. COMPARISON: None. FINDINGS: The visualized portions of right common femoral vein, profunda (deep) femoral vein, femoral vein, pop liteal vein, peroneal veins, posterior tibial veins, and greater saphenous vein outflow are patent. IMPRESSION: 1. No deep venous thrombosis. Reviewed, dictated and finalized at location A.
[2023-09-20 14:37] LABS: Hematocrit 40.3 % (35.0-49.0); Hemoglobin 14.2 g/dL (12.0-15.0); Mean Corpuscular HGB Conc 35.2 g/dL (32-36); Mean Corpuscular Hemoglobin 38.2 pg (27.0-31.0); Mean Corpuscular Volume 108.3 fL (78.0-102.0); Mean Platelet Volume 9.2 fl (9.2-11.8); Platelet Count Result 259 K/mm3 (150-420); Red Blood Count 3.72 M/mm3 (4.20-5.40); Red Cell Distribution Width 15.2 % (11.6-14.4)
[2023-09-20 15:02] LABS: INR 0.9; Partial Thromboplastin Time 29.4 Sec (23.9-30.70); Prothrombin Time 9.8 Seconds (9.50-12.1)
[2023-09-20 19:30] LABS: Alanine Aminotransferase 27 U/L (14-59); Albumin Level 3.9 g/dL (3.4-5.0); Alkaline Phosphatase 109 U/L (46-116); Anion Gap 12 mmol/L (4-12); Aspartate Amino Transferase 20 U/L (15-37); Bilirubin,Total 0.3 mg/dL (0.00-1.00); Blood Urea Nitrogen 11 mg/dL (7-18); Calcium 8.7 mg/dL (8.5-10.1); Carbon Dioxide 26 mmol/L (21-32); Chloride 102 mmol/L (98-108); Estimated Glomerular Filt Rate > 60; Glucose 89 mg/dL (70-99); Osmolality Calculated 288 mOsm/kg (285-295); Potassium 3.8 mmol/L (3.5-5.1); Sodium 140 mmol/L (136-145); Total Protein 7.2 g/dL (6.4-8.2)
== END 2023-09-20 14:19 | disposition home or self-care (01) ==
PROVIDERS: PCP Internal Medicine; Visit Provider Nurse Practitioner Family
DX: M79.89 Other specified soft tissue disorders (principal); D75.1 Secondary polycythemia
CPT/HCPCS: 36415; 80053; 85027; 85610; 85730; 93971

== ENCOUNTER 2023-09-21 10:32 | Outpatient (CLI) | payer OTHER, SELFPAY ==
--- NOTE | ~2023-09-21 | XR_ITS ---
Right Knee Technique: AP, lateral, and sunrise views were obtained. Clinical History: Pain Findings: No fracture or dislocation is seen. Osseous alignment is anatomic. There is mild to moderat e tricompartmental degenerative spurring.. Soft tissues are unremarkable. No joint effusion is seen. Impression: Mild to moderate tricompartmental degenerative spurring. Reviewed, dictated and finalized at location . Impression: Mild to moderate tricompartmental degenerative spurring.
== END 2023-09-21 10:33 | disposition home or self-care (01) ==
LOC: CHSIMG 10:36
PROVIDERS: PCP Internal Medicine; Visit Provider Nurse Practitioner Family
DX: M25.561 Pain in right knee (principal); M76.891 Other specified enthesopathies of right lower limb, excluding foot
CPT/HCPCS: 73562

== ENCOUNTER 2024-04-26 00:43 | Day surgery (SDC) | payer OTHER, SELFPAY ==
[2024-04-20 13:03] VITALS: BMI 38.6
--- NOTE | 2024-04-20 13:17 | SUR.PREOP ---
Spoke with patient regarding medication plavix and cilostazol. Patient verbalizes understanding that the last dose is to be taken on 04/21/2024 and the Endoscopist will instruct them when to restart after the procedure.
--- OUTSIDE RECORDS SUMMARY | 2024-04-26 00:45 | XMS_ITS | Encounter Summary ---
Author Organization [facility] Address [address] [place] [address] Care Team Providers Care Hand Expansion Envelope Maker Name Role Phone Rosa Whitaker MD Unavailable [phone] Rosa Whitaker MD Primary Care Provider [phone] Ac Hutchison MD Unavailable Encounter Details Date Type Department Care Team (Late Contact Info) Description 12/21/2023 [employer] [facility] Provider ACTION REQUIRED Social History Tobacco Use Types Packs/Day Years Used Date Smoking Tobacco: Every Day Cigarettes Smokeless Tobacco: Never Alcohol Use Standard Drinks/Week Comments Yes 0 (1 standard drink = 0.6 oz pur e alcohol) Comments No Sex and Gender Information Value Date Recorded Sex Assigned at Not on file Legal Sex Female 8:32 AM CDT Gender Identity Not on file Sexual Orientation Not on file Occupation Industry Job Start Date Job End Date Housewife Not on file Not on file Not on file documented as of this encounter Plan of Treatment Upcoming Encounters Date Type Department Care Team (Late Contact Info) Description 05/16/2024 11:30 AM CDT Appointment [facility] [place] [address] Andi Redmond MD [address] [place] [address] 05/16/2024 11:40 AM CDT [facility] [place] [address] Andi Redmond MD [address] [place] [address] documented as of this encounter Visit Diagnoses Not on filedocumented in this encounter Care Teams Hand Expansion Envelope Maker Relationship Specialty Start Date End Date Rosa Whitaker MD [address] [place] [address] PCP - General INTERNAL MEDICINE 11/16/22 Rosa Whitaker MD [address] [place] [address] INTERNAL MEDICINE 11/16/22 Ac Hutchison MD [address] [place] [address] Consulting Physician INTERNAL MEDICINE 11/26/22 documented as of this encounter
--- OUTSIDE RECORDS SUMMARY | 2024-04-26 00:45 | XMS_ITS | Clinical Summary ---
Author Organization [facility] Address [address] [place] [address] Care Team Providers Care Campus Recruiting Internship Name Role Phone Unavailable Primary Care Provider Unavailabl e Source Comments [facility],non-owned Affiliates and Associated Physician Practices is amultiple site organization consisting of ambulatory clinics and hospital sitesin [place], [place], [place] and [place]. This disclosure is being madepursuant to the Care Everywhere program and may not contain all information available regarding this patient. Last updated 17.[facility] Social History Tobacco Use Types Packs/Day Years Used Date Smoking Tobacco: Never Assessed Sex and Gender Information Value Date Recorded Sex Assigned at Not on file Gender Identity Not on file Sexual Orientation Not on file Plan of Treatment Health Maintenance Due Date Last Done Comments COLOGUARD (AGES 45-75) - COL ON CA SCREENING 1973 COLON MONITORING 1973 COLONOSCOPY - COLON CA SCREENING 1973 CT COLONOGRAPHY - COLON CA SCREENING 1973 Colorectal Cancer Screening 1973 FIT - COLON CA SCREENING 1973 FLEX SIG - COLON CA SCREENING 1973 LIPID TESTING 1973 MAMMOGRAM 1973 PAP SMEAR 1973 HIV SCREENING 1988 HEPATITIS C SCREENING 07/11/1991 DTAP/TDAP/TD VACCINES (1 - Tdap) 1992 HEPATITIS B VACCINE (1 of 3 - 19+ 3-dose series) 1992 PNEUMOCOCCAL VACCINE 50+ (1 of 1 - PCV) 07/16/2023 ZOSTER VACCINE (1 of 2) 07/16/2023 COVID-19 VACCINE (1 - 2023-2 5 season) 2023 INFLUENZA VACCINE (#1) 2023 DEPRESSION SCREENING 02/15/2024 HIB VACCINE Aged Out No longer eligi ble based on patient's age to complete this topic HPV VACCINE Aged Out No longer eligi ble based on patient's age to complete this topic MENINGOCOCCAL (Group B) VACC INE SHARED DECISION-MAKING Aged Out No longer eligibl e based on patient's age to complete this topic MENINGOCOCCAL GROUPS A/C/Y/W VACCINE Aged Out No longer eligible b ased on patient's age to complete this topic PNEUMOCOCCAL VACCINE Aged Out No long er eligible based on patient's age to complete this topic
--- OUTSIDE RECORDS SUMMARY | 2024-04-26 00:45 | XMS_ITS | Clinical Summary ---
Author Organization [facility] Address [address] [place] [address] Care Team Providers Care Asphalt Heater Operator Name Role Phone Rosa Whitaker MD Unavailable [phone] Rosa Whitaker MD Primary Care Provider [phone] Ac Hutchison MD Unavailable Allergies No known active allergies Medications amLODIPine (NORVASC) 5 MG tablet Take 1 tablet (5 mg total) by mouth daily. Active cilostazol (PLETAL) 50 MG tablet Take 1 tablet (50 mg total) by mouth 2 (two) times daily. Active clopidogrel (PLAVIX) 75 MG tablet Take 1 tablet (75 mg total) by mouth daily. Active gabapentin (NEURONTIN) 300 MG capsule Take 1 capsule (300 mg total) by mouth 3 (three) times daily. Active naltrexone (DEPADE) 50 MG tablet Take 1 tablet (50 mg total) by mouth daily. Active thiamine 100 MG Tab Take 1 tablet (100 mg total) by mouth daily. Active metoprolol succinate ER (TOPROL-XL) 50 MG 24 hr tablet Take 1 tablet (50 mg total) by mouth daily. 023 Active [employer] ATHLETES FOOT 1 % cream APPLY TO AFFECTED AREA AND SURROUNDING AREAS OF SKIN BY TOPICAL ROUTE TWICE A DAY 023 Active COMPRESSION STOCKINGSIndicat ions:PAD (peripheral artery disease),Mixed hyperlipidemia,C hronic venous insufficiency 20-30 MMHG Compression stockings, knee-high, open or closed toe Dx: I83.893 1 Container 6 023 Active pantoprazole EC (PROTONIX) 40 MG tablet 1 tablet (40 mg total) 2 (two) times daily. 023 Active hydroxyurea (HYDREA) 500 MG capsule Take 2 capsules (1,000 mg total) by mouth daily. 180 capsule 3 024 2024 Active atorvastatin (LIPITOR) 10 MG tablet Take 1 tablet by mouth daily at bedtime. 30 tablet 1 025 Active atorvastatin (LIPITOR) 10 MG tablet Take 1 tablet by mouth daily at bedtime. 30 tablet 2 024 2024 Discontinued Active Problems Problem Noted Date Diagnosed Date Polycythemia 01/12/2023 PAD (peripheral artery disease) 12/21/2022 Chronic venous insufficiency 12/21/2022 GERD (gastroesophageal reflux disease) 3 Smoker 11/15/2022 Cifuentes's esophagus 11/15/2022 Cellulitis of left foot 11/15/2022 Varicose veins of bilateral lower extremities with other complications 11/15/2022 'Zybca-lhr-zrizi' infant wit h signs of malnutrition (HHS/HCC) 11/15/2022 Encounters Date Type Department Care Team Description 04/17/2024 Telephone [facility] [address] [place] [address] Ac Hutchison MD Medication Information (hold) from Last 3 Months Immunizations Name Administration Dates Next Due MODERNA COVID-19 (12+) MRNA, LNP-S, PF, 100 MCG/ 0.5 ML DOSE 01/20/2021,06/06/2020,05/09/2020 Family History Relation Status Comments Father Maternal Grandfather Maternal Grandmother Mother Paternal Grandfather Paternal Grandmother Social History Tobacco Use Types Packs/Day Years Used Date Smoking Tobacco: Every Day Cigarettes Smokeless Tobacco: Never Tobacco Cessation:Ready to Q uit: Not Asked; Counseling Given: Not Answered Alcohol Use Standard Drinks/Week Comments Yes 0 [...] file Not on file Not on file Last Filed Vital Signs Vital Sign Reading Time Taken Comments Blood Pressure 137/79 11/21/2023 2:03 PM CDT Pulse 88 11/21/2023 2:03 PM CDT Temperature 36.2 C (97.1 F) 11/21/2023 2:03 PM CDT Respiratory Rate 16 11/21/2023 2:03 PM CDT Oxygen Saturation 97% 11/21/2023 2:03 PM CDT Inhaled Oxygen Concentration - - Weight 103.2 kg (227 lb 9.6 oz) 11/21/2023 2:03 PM CDT Height 172.7 cm (5' 8 ) 01/12/2023 1:11 PM MANGANESE WHEELER Body Mass Index 34.61 01/12/2023 1:11 PM MANGANESE WHEELER Plan of Treatment Upcoming Encounters Date Type Department Care Team (Late st Contact Info) Description 05/16/2024 11:30 AM CDT [facility]ment [facility] [place] [address] Andi Redmond MD [address] [place] [address] [phone] 05/16/2024 11:40 AM CDT Office Visit [facility] [place] [address] Andi Redmond MD [address] [place] [address] [phone] Health Maintenance Due Date Last Done Comments Cervical Cancer Screening Pap Smear (Age 30 to 64) Every 3 Years 1973 Colorectal Cancer Screening Colonoscopy (10 Years) 1973 EGD-Cifuentes's Surveillance 1973 Annual Physical 1976 Pneumococcal Vaccine: Pediatrics (0 to 5 Years) and At-Risk Patients (6 to 64 Years) (1 of 2 - PCV) 07/16/1979 Hepatitis C 07/16/1991 Hepatitis B Vaccines (1 of 3 - 19+ 3-dose series) 1992 Cervical Cancer Screening Pap with HPV Testing (Age 30 to 64) Every 5 Years 07/16/2003 Cervical Cancer Screening with HPV 07/16/2003 Mammogram Screening 2013 Zoster Vaccines (1 of 2) 07/16/2023 COVID-19 Vaccine (4 - season) 2023 01/20/2021, 06/06/2020, 05/09/2020 Influenza Adult (#1) 2023 11/02/2022, 02/17/2018, 12/09/2016, Additional history exists ASCVD LDL 04/19/2024 04/20/2023, 11/16/2022 DTaP, Tdap and Td Vaccines (2 - Td or Tdap) 11/02/2032 11/02/2022 Meningococcal B Vaccine Aged Out No l onger eligible based on patient's age to complete this topic Meningococcal Vaccine Aged Out No evelia timur eligible based on patient's age to complete this topic RSV Immunizations Under 20 Months Aged Out No longer eligible based on patient's age to complete this topic Procedures Procedure Name Priority Date/Time Associated Diagnosis Comments LIPID PANEL Routine 04/20/2023 10:52 AM MANGANESE WHEELER Urinary tract infection, site not specified Impaired fasting glucose Mixed hyperlipidemia Benign hypertension from Last 3 Months or Most Recently Relevant to Health Maintenance Results * LIPID PANEL (04/20/2023 10:52 AM MANGANESE WHEELER) CHOLESTEROL 207 MG/DL 04/21/2023 11:58 AM [facility] Comment:BORDERLINE HIGH: 200 -239 TRIGLYCERIDES 125 MG/DL 04/21/2023 11:58 AM [facility] Comment:<150 NORMAL HDL 64 >49 MG/DL 04/21/2023 11:58 AM MANGANESE WHEELER [facility] LDL-C 118 MG/DL 04/21/2023 11:58 AM [facility] Comment:100-129 NEAR OR ABOV E OPTIMAL VLDL CALCULATION 25 MG/DL 04/21/19 11:58 AM [facility] Comment:REFERENCE RANGE NOT ESTABLISHED CHOL/HDL RATIO 3.2 04/21/2023 11:58 AM [facility] Comment:REFERENCE RANGE NOT ESTABLISHED LDL/HDL 1.8 04/21/2023 11:58 AM MANGANESE WHEELER [facility] Comment:REFERENCE RANGE NOT ESTABLISHED NON HDL CHOLESTEROL 143 MG/DL 04/21/2023 11:58 AM MANGANESE WHEELER [facility] Comment:REFERENCE RANGE NOT ESTABLISHED 04/20/2023 10:5 2 AM MANGANESE WHEELER Rosa Whitaker MD LABORATORY Final Result [facility] [address] [place] [address], [id number] from Last 3 Months or Most Recently Relevant to Health Maintenance Insurance [employer] [place] [id number] Care Teams Asphalt Heater Operator Relationship Specialty Start Date End Date Rosa Whitaker MD [address] [place] [phone] PCP - General INTERNAL MEDICINE 11/16/22 Rosa Whitaker MD [address] [place] [phone] INTERNAL MEDICINE 11/16/22 Ac Hutchison MD [address] [place] [phone] Consulting Physician INTERNAL MEDICINE 11/26/22
--- OUTSIDE RECORDS SUMMARY | 2024-04-26 00:45 | XMS_ITS | Referral Summary ---
Author Organization [facility] Address [address] [place] [address] Care Team Providers Care Property Valuer Name Role Phone Rosa Whitaker MD Primary Care Provider [phone] Allergies No known active allergies Medications erythromycin (ILOTYCIN) ophthalmic ointment Place 1/2 inch ribbon in left eye four times a day. 3.5 g 08/31/[address] (PROTONIX) 40 mg EC tablet Take 40 mg by mouth daily Active predniSONE (DELTASONE) 20 mg tablet Take by mouth Active Active Problems Problem Noted Date Diagnosed Date Varicose veins of right lower extremity with summer n 04/01/2021 Social History Tobacco Use Types Packs/Day Years Used Date Smoking Tobacco: Every Day Smokeless Tobacco: Never Alcohol Use Standard Drinks/Week Comments Yes 0 (1 standard drink = 0.6 oz pur e alcohol) Comments Unknown Sex and Gender Information Value Date Recorded Sex Assigned at Not on file Legal Sex Female 7:58 AM BOTTOM POLISHER Gender Identity Not on file Sexual Orientation Not on file Last Filed Vital Signs Vital Sign Reading Time Taken Comments Blood Pressure 162/84 03/23/2021 11:13 AM BOTTOM POLISHER Pulse 90 08/31/2019 4:04 PM CDT Temperature 36.4 C (97.5 F) 08/31/2019 4:04 PM CDT Respiratory Rate 16 08/31/2019 4:04 PM CDT Oxygen Saturation 98% 08/31/2019 4:04 PM CDT Inhaled Oxygen Concentration - - Weight 77.1 kg (170 lb) 03/23/2021 11:13 AM BOTTOM POLISHER Height 162.6 cm (5' 4 ) 03/23/2021 11:13 AM BOTTOM POLISHER Body Mass Index 29.18 03/23/2021 11:13 AM BOTTOM POLISHER Plan of Treatment Not on file Insurance [facility] CHOICE PLUS [facility] CHOICE PLUS Care Teams Property Valuer Relationship Specialty Start Date End Date Rosa Whitaker MD [address] [place] [address] PCP - General 04/30/08
--- OUTSIDE RECORDS SUMMARY | 2024-04-26 00:45 | XMS_ITS | Referral Summary ---
Author Organization [facility] Address [address] [place] [address] Care Team Providers Care Technical Business Systems Analyst Name Role Phone Unavailable Primary Care Provider Unavailabl e Source Comments [facility],non-owned Affiliates and Associated Physician Practices is amultiple site organization consisting of ambulatory clinics and hospital sitesin [place], [place], [place] and [place]. This disclosure is being madepursuant to the Care Everywhere program and may not contain all information available regarding this patient. Last updated 17.[facility] Social History Tobacco Use Types Packs/Day Years Used Date Smoking Tobacco: Never Assessed Sex and Gender Information Value Date Recorded Sex Assigned at Not on file Gender Identity Not on file Sexual Orientation Not on file Plan of Treatment Not on file
--- OUTSIDE RECORDS SUMMARY | 2024-04-26 00:45 | XMS_ITS | Patient Health Summary ---
Author Organization [facility] Address [address] [place] [address] Care Team Providers Care Instrument Assembly Supervisor Name Role Phone Unavailable Primary Care Provider Unavailabl e Note from [facility],non-owned Affiliates and Associated Physician Practices is amultiple site organization consisting of ambulatory clinics and hospital sitesin [place], [place], [place] and [place]. This disclosure is being madepursuant to the Care Everywhere program and may not contain all information available regarding this patient. Last updated 17.[facility] Social History Tobacco Use Types Packs/Day Years Used Date Smoking Tobacco: Never Assessed Sex and Gender Information Value Date Recorded Sex Assigned at Not on file Gender Identity Not on file Sexual Orientation Not on file
--- OUTSIDE RECORDS SUMMARY | 2024-04-26 00:45 | XMS_ITS | Encounter Summary ---
Author Organization [facility] Address [address] [place] [address] Care Team Providers Care Structural Steel Engineer Name Role Phone Rosa Whitaker MD Unavailable [phone] Rosa Whitaker MD Primary Care Provider [phone] Ac Hutchison MD Unavailable Encounter Details Date Type Department Care Team (Late Contact Info) Description 11/15/2022 [facility] [address] [place] [phone] Ac Hutchison MD [address] [place] [address] Social History Tobacco Use Types Packs/Day Years Used Date Smoking Tobacco: Every Day Cigarettes 1 30 Smokeless Tobacco: Never Alcohol Use Standard Drinks/Week [...] Info) Description 05/16/2024 11:30 AM CDT Appointment [facility] [address] [place] [address] Andi Redmond MD [address] [place] [address] [phone] 05/16/2024 11:40 AM CDT Office Visit [facility] [address] [place] [address] Andi Redmond MD [address] [place] [phone] documented as of this encounter Visit Diagnoses Not on filedocumented in this encounter Care Teams Structural Steel Engineer Relationship Specialty Start Date End Date Rosa Whitaker MD [address] [place] [phone] PCP - General INTERNAL MEDICINE 11/16/22 Rosa Whitaker MD [address] [place] [phone] INTERNAL MEDICINE 11/16/22 Ac Hutchison MD [address] [place] [phone] Consulting Physician INTERNAL MEDICINE 11/26/22 documented as of this encounter
--- OUTSIDE RECORDS SUMMARY | 2024-04-26 00:45 | XMS_ITS | Clinical Summary ---
Author Organization [facility] Address [address] [place] [address] Care Team Providers Care Cad Draftsman Name Role Phone Rosa Whitaker MD Primary Care Provider + [phone] Allergies No known active allergies Medications erythromycin [...] right lower extremity with summer n 04/01/2021 Surgical History Surgery Date Site/Laterality Comments TUBAL LIGATION 2002 Bilateral tubal ligation KNEE SURGERY 1990 Right knee surgery Medical History Medical History Date Comments Hepatitis C virus infection 1990 Hepa titis C Hx Other Medical hiatal hernia Hx Other Medical Gallbladder alie yps Hx Other Medical PUD Family History Medical History Relation Name Comments Liver cancer Maternal Grandfather 2 liver cancer; Lung cancer Maternal Grandmother 2 Cance r, lung; Hypertension Mother 2 Hypertension; Other Mother 2 anesthesia prob lems; Ovarian cancer Paternal Grandmother 2 Can cer, ovarian; Relation Name Status Comments Maternal Grandfather 1 Alive Maternal Grandfather 2 Maternal Grandmother 1 Alive Maternal Grandmother 2 Mother 1 Alive Mother 2 Paternal Grandmother 1 Alive Paternal Grandmother 2 Social History Tobacco Use Types Packs/Day Years Used Date Smoking Tobacco: Every Day Smokeless Tobacco: Never Alcohol Use Standard Drinks/Week Comments Yes 0 (1 standard drink = 0.6 oz pur e alcohol) Comments Unknown Sex and Gender Information Value Date Recorded Sex Assigned at Not on file Legal Sex Female 7:58 AM SALES DEPARTMENT MANAGER Gender Identity Not on file Sexual Orientation Not on file Obstetrics History Last Filed Vital Signs Vital Sign Reading Time Taken Comments Blood Pressure 162/84 03/23/2021 11:13 AM SALES DEPARTMENT MANAGER Pulse 90 08/31/2019 4:04 PM CDT Temperature 36.4 C (97.5 F) 08/31/2019 4:04 PM CDT Respiratory Rate 16 08/31/2019 4:04 PM CDT Oxygen Saturation 98% 08/31/2019 4:04 PM CDT Inhaled Oxygen Concentration - - Weight 77.1 kg (170 lb) 03/23/2021 11:13 AM SALES DEPARTMENT MANAGER Height 162.6 cm (5' 4 ) 03/23/2021 11:13 AM SALES DEPARTMENT MANAGER Body Mass Index 29.18 03/23/2021 11:13 AM SALES DEPARTMENT MANAGER Plan of Treatment Not on file Insurance [facility] CHOICE PLUS [facility] HMO/PPO Address: [facility] [address] [place] [address] [facility] CHOICE PLUS [facility] HMO/PPO Address: [place] [address] Care Teams Cad Draftsman Relationship Specialty Start Date End Date Rosa Whitaker MD [address] [place], [place] [phone] PCP - General 04/30/08
[2024-04-26 09:15] VITALS: BP 144/89; PULSE 87; RESP 16; TEMP 36.2; O2SAT 99; BMI 39.6
[2024-04-26] MEDS: LACTATED RINGERS 1,000 ML 150 ML IV CONT (09:24)
--- NOTE | 2024-04-26 09:50 | P.PNAN_ITS ---
Anes - Initial Pre Proc Eval Procedure: Operation Date: 04/26/24 10:30 Proposed Procedures p Screening Colonoscopy - Jeff Del Cid MD Date/Time: 04/26/24 09:50 Surgeon: Jeff Del Cid MD Pre Op Diagnosis: screening colon Patient Data Age: 48 Gender: F Height: 1.63 m Weight: 104.8 kg Last Vital Signs Temp 36.2 C L 04/26/24 09:15 Pulse 87 04/26/24 09:15 Resp 16 04/26/24 09:15 BP 144/89 H 04/26/24 09:15 Pulse Ox 99 04/26/24 09:15 O2 Del Method Room Air 04/26/24 09:15 Allergies Allergy/AdvReac Type Severity Reaction Status Date / Time No Known Allergies Allergy Verified 04/26/24 09:14 Home Medications ?Medication ?Instructions ?Recorded ?Confirmed ?Type pantoprazole 40 mg tablet,delayed 40 mg PO QAM 10/16/22 04/26/24 History release (Protonix) aspirin 81 mg tablet,delayed 81 mg PO DAILY 04/20/24 04/26/24 History release atorvastatin 10 mg tablet 10 mg PO QPM 04/20/24 04/26/24 History cilostazol 50 mg tablet 50 mg PO BID 04/20/24 04/26/24 History clopidogrel 75 mg tablet 75 mg PO DAILY 04/20/24 04/26/24 History gabapentin 300 mg capsule 300 mg PO TID 04/20/24 04/26/24 History hydroxyurea 500 mg capsule 500 mg PO Q12H 04/20/24 04/26/24 History metoprolol succinate 50 mg 50 mg PO DAILY 04/20/24 04/26/24 History tablet,extended release 24 hr Patient hx anesthesia problems: none Family hx anesthesia problems: none Results Review: All pre-operative results and documents have been reviewed as part of the pre- operative evaluation. [facility] Past Medical History Medical History (Updated 04/26/24 @ 09:51 by Norman Pulido MD) HTN (hypertension) Morbid obesity Social History Social History Years smoked: 40 Smoking status: Current every day smoker Tobacco type: cigarettes Alcohol intake: current Drinks per week: 10 Substance use: current Substance use type: marijuana Living arrangements: with family Lee Bradford Final PreProcedure Day of Procedure 04/26/24 09:50 Patient weight: morbidly obese Heart: regular rate and rhythm Lungs: clear to auscultation Airway: Mallampati scale class II Neurological: alert and oriented Last oral intake: >/= 8 hours ASA classification: III Emergent: no Anesthetic plan: proceed Anesthesia type and monitoring: general GIVS and standard monitoring Results Review: All pre-operative results and documents have been reviewed as part of the pre- operative evaluation. Informed Consent: The patient's anesthetic plan and its attendant risks and benefits were discussed with the patient/family/POA. Questions were solicited and answers provided to the satisfaction of the patient/family/POA.
--- NOTE | 2024-04-26 10:25 | PM.HPGS ---
History of Present Illness History of Present Illness Consent: Risks, benefits, and alternatives have been discussed and questions answered. Patient agrees to proceed with procedure. Chief complaint: screening colon Narrative: Marva Villalba is a 48 year old female here for first screening colonoscopy Review of Systems Review of Systems: All systems reviewed & are unremarkable except as noted in HPI and below PMFSH Past Medical History Medical History (Updated 04/26/24 @ 10:25 by Jeff Del Cid MD) Colon cancer screening HTN (hypertension) Morbid obesity Social History Social History Years smoked: 40 Smoking status: Current every day smoker Tobacco type: cigarettes Alcohol intake: current Drinks per week: 10 Substance use: current Substance use type: marijuana Living arrangements: with family Meds Home Medications and Allergies Home Medications ?Medication ?Instructions ?Recorded ?Confirmed ?Type pantoprazole 40 mg tablet,delayed 40 mg PO QAM 10/16/22 04/26/24 History release (Protonix) aspirin 81 mg tablet,delayed 81 mg PO DAILY 04/20/24 04/26/24 History release atorvastatin 10 mg tablet 10 mg PO QPM 04/20/24 04/26/24 History cilostazol 50 mg tablet 50 mg PO BID 04/20/24 04/26/24 History clopidogrel 75 mg tablet 75 mg PO DAILY 04/20/24 04/26/24 History gabapentin 300 mg capsule 300 mg PO TID 04/20/24 04/26/24 History hydroxyurea 500 mg capsule 500 mg PO Q12H 04/20/24 04/26/24 History metoprolol succinate 50 mg 50 mg PO DAILY 04/20/24 04/26/24 History tablet,extended release 24 hr Allergies Allergy/AdvReac Type Severity Reaction Status Date / Time No Known Allergies Allergy Verified 04/26/24 09:14 Vital Signs Vital Signs - 24 hr 04/26/24 09:15 Temperature 97.2 F L Pulse Rate 87 Respiratory Rate 16 Blood Pressure 144/89 H Pulse Oximetry 99 Oxygen Delivery Room Air Exam Const: General: comfortable and no acute distress HENMT: Face/Nose/Sinus: Normal nares present Eyes: General: appearance normal, both eyes and all related structures Neck: Neck: no JVD Resp: Auscultation: clear to auscultation bilaterally Cardio: Rate: regular rate Rhythm: regular rhythm GI: Inspection: non-distended GI Palp: Yes Soft to palpation Skin: General skin exam: normal color Neuro: General: gait normal Speech: normal speech Extrem: General: normal to inspection Psych: Mental Status: mental status grossly normal Assessment and Plan Assessment and plan (1) Colon cancer screening: Code(s): Z12.11 - Encounter for screening for malignant neoplasm of colon Status: Acute Assessment and Plan: colonoscopy
[2024-04-26 10:41] VITALS: BP 127/79; PULSE 80; RESP 16; O2SAT 98
[2024-04-26 10:51] VITALS: BP 111/77; PULSE 78; RESP 23; O2SAT 100
[2024-04-26 11:01] VITALS: BP 114/70; PULSE 77; RESP 23; O2SAT 100
== END 2024-04-26 11:11 | disposition home or self-care (01) ==
PROVIDERS: PCP Internal Medicine; Referring Provider Internal Medicine; Visit Provider Internal Medicine Gastroenterology
PROC: 0DJD8ZZ Inspection of Lower Intestinal Tract, Via Natural or Artificial Opening Endoscopic (ICD-10-PCS; CPT 45378; principal; 2024-04-26 10:30)
DX: Z12.11 Encounter for screening for malignant neoplasm of colon (principal); K63.5 Polyp of colon; K57.30 Diverticulosis of large intestine without perforation or abscess without bleeding; I10 Essential (primary) hypertension; F17.210 Nicotine dependence, cigarettes, uncomplicated; F12.90 Cannabis use, unspecified, uncomplicated; E66.01 Morbid (severe) obesity due to excess calories; Z68.39 Body mass index [BMI] 39.0-39.9, adult; Z79.82 Long term (current) use of aspirin; Z79.02 Long term (current) use of antithrombotics/antiplatelets
CPT/HCPCS: 45385; 88305; J2003; J2704; J7120

== ENCOUNTER 2024-12-14 12:59 | Outpatient (CLI) | payer BC, SELFPAY ==
--- NOTE | ~2024-12-14 | MM_ITS ---
EXAMINATION: MM screening [facility] BI w annabelle HISTORY: Screening TECHNIQUE: Craniocaudal and mediolateral oblique 3-D tomosynthesis images were obtained and synthetic 2-D images were generated. CAD analysis was submitted and interpreted. COMPARISON: 08/11/2023 BREAST PARENCHYMAL COMPOSITION: Not Dense: The breasts are almost entirely fatty. FINDINGS: There is no evidence of suspicious mass, calcification, or architectural distortion to suggest malignancy in either breast. There has been no suspicious interval change. IMPRESSION: 1. No mammographic evidence of malignancy. 2. Recommend routine screening mammography in one year. BI-RADS Category 1: Negative Reviewed, dictated and finalized at location B.
--- OUTSIDE RECORDS SUMMARY | 2024-12-14 13:04 | XMS_ITS | Clinical Summary ---
Author Organization [facility] Address [address] [place] [address] Care Team Providers Care Shaper Setter Name Role Phone Rosa Whitaker MD Primary Care Provider + [phone] Allergies No known active allergies Medications erythromycin [...] on file Legal Sex Female 7:58 AM WIND FARM ENGINEER Gender Identity Not on file Sexual Orientation Not on file Obstetrics History Last Filed Vital Signs Vital Sign Reading Time Taken Comments Blood Pressure 162/84 03/23/2021 11:13 AM WIND FARM ENGINEER Pulse 90 08/31/2019 4:04 PM CDT Temperature 36.4 C (97.5 F) 08/31/2019 4:04 PM CDT Respiratory Rate 16 08/31/2019 4:04 PM CDT Oxygen Saturation 98% 08/31/2019 4:04 PM CDT Inhaled Oxygen Concentration - - Weight 77.1 kg (170 lb) 03/23/2021 11:13 AM WIND FARM ENGINEER Height 162.6 cm (5' 4) 03/23/2021 11:13 AM WIND FARM ENGINEER Body Mass Index 29.18 03/23/2021 11:13 AM WIND FARM ENGINEER Plan of Treatment Not on file Insurance [facility] CHOICE PLUS [facility] HMO/PPO Address: [place] [facility] [address] [place] [address] [facility] CHOICE PLUS [facility] HMO/PPO Address: [place] [address] Care Teams Shaper Setter Relationship Specialty Start Date End Date Rosa Whitaker MD [address] [place], [place] [phone] PCP - General 04/30/08
[2024-12-14 13:22] LABS: Hematocrit 38.9 % (35.0-49.0); Hemoglobin 13.6 g/dL (12.0-15.0); Mean Corpuscular HGB Conc 35.0 g/dL (32-36); Mean Corpuscular Hemoglobin 44.6 pg (27.0-31.0); Mean Corpuscular Volume 127.5 fL (78.0-102.0); Platelet Count Result 177 K/mm3 (150-420); Red Blood Count 3.05 M/mm3 (4.20-5.40); White Blood Count 5.3 K/mm3 (4.8-10.8)
[2024-12-14 13:39] LABS: Add Urine Microscopic? YES; Appearance Urine Clear (Clear); Glucose Urine UA Negative (Negative); Leukocyte Esterase Ur Negative (Negative); Nitrate Urine Negative (Negative); Specific Grav Ur 1.025 (1.010-1.020)
[2024-12-14 13:50] LABS: Hemoglobin A1C 5.4 % (<5.7)
[2024-12-14 13:55] LABS: Alanine Aminotransferase 91 U/L (6-35); Albumin Level 4.2 g/dL (3.5-5.1); Alkaline Phosphatase 93 U/L (38-126); Anion Gap 6 mmol/L (4-12); Aspartate Amino Transferase 53 U/L (14-36); Bilirubin,Total 0.7 mg/dL (0.2-1.3); Blood Urea Nitrogen 16 mg/dL (7-17); Calcium 8.7 mg/dL (8.4-10.2); Carbon Dioxide 30 mmol/L (22-30); Chloride 105 mmol/L (98-107); Cholesterol 215 mg/dL (0-200); Estimated Glomerular Filt Rate > 60; Glucose 101 mg/dL (65-110); HDL Direct 74 mg/dL; Osmolality Calculated 293 mOsm/kg (285-295); Potassium 4.3 mmol/L (3.4-5.0); Sodium 141 mmol/L (137-145); Total Protein 6.6 g/dL (6.3-8.2); Triglycerides 71 mg/dL (<150)
[2024-12-14 13:58] LABS: GGT 65.5 U/L (12-43)
[2024-12-14 14:13] LABS: Free T4 Free Thyroxine 1.23 ng/dL (0.78-2.19)
[2024-12-14 14:27] LABS: Thyroid Stimulating Hormone 1.320 uIU/mL (0.465-4.680)
== END 2024-12-14 13:00 | disposition home or self-care (01) ==
PROVIDERS: PCP Internal Medicine; Visit Provider Internal Medicine
DX: B18.2 Chronic viral hepatitis C (principal); I10 Essential (primary) hypertension; M79.2 Neuralgia and neuritis, unspecified; D45 Polycythemia vera; R73.01 Impaired fasting glucose; E03.4 Atrophy of thyroid (acquired); F10.288 Alcohol dependence with other alcohol-induced disorder; Z12.31 Encounter for screening mammogram for malignant neoplasm of breast
CPT/HCPCS: 36415; 77063; 77067; 80053; 80061; 81001; 82977; 83036; 84439; 84443; 85027